=== PATIENT | female | born 1970 | race Caucasian/White ===

== ENCOUNTER 2023-03-15 13:14 | Inpatient (IN) | payer BC ==
[~2023-03-15] VITALS: Ht 172.7 cm; Wt 130.6 kg
[2023-03-15 13:15] VITALS: BP_SYST 196
[2023-03-15 14:05] LABS: MEAN CORPUSCULAR HEMOGLOBIN 15 pg (27-31); MEAN CORPUSCULAR HGB CONC 27 % (32-36); MEAN CORPUSCULAR VOLUME 54 fL (79.0-98.0); PLATELET COUNT (AUTO) 371 K/uL (130-430); RED BLOOD CELL COUNT(AUTO) 3.58 MIL/uL (4.2-6.2); RED CELL DISTRIBUTION WIDTH 22.1 % (9.0-15.0); WHITE BLOOD COUNT (AUTO) 7.8 K/uL (4.8-10.8)
[2023-03-15 14:17] LABS: HEMOGLOBIN 5.3 g/dL (12.0-16.0)
[2023-03-15 14:18] LABS: HEMATOCRIT 19.5 % (36-48)
[2023-03-15 14:20] LABS: CALCIUM 8.7 mg/dL (8.4-11.0); CREATININE 1.23 mg/dL (0.55-1.30)
[2023-03-15 14:24] LABS: ALBUMIN 3.7 g/dL (3.4-4.8); TOTAL BILIRUBIN 0.4 mg/dL (0.0-1.0)
[2023-03-15] MEDS ORDERED: NACL 0.9% 1,000 ML IV ONE (14:45)
[2023-03-15 14:46] LABS: BASOPHILS % (MANUAL) 0 % (0-2); EOSINOPHILS % (MANUAL) 1 % (0-7); LYMPHOCYTES % (MANUAL) 10 % (20-46); MONOCYTES % (MANUAL) 5 % (0-11)
[2023-03-15 15:42] LABS: PROTHROMBIN TIME 10.2 SECS (9.5-12.5)
[2023-03-15] MEDS ORDERED: BUSP15TA3 PO (17:32)
[2023-03-15] MEDS ORDERED: LORA-259 PO (17:32)
[2023-03-15] MEDS ORDERED: LEVO125T8 PO (17:32)
[2023-03-15] MEDS ORDERED: DOXE10CA2 PO (17:32)
[2023-03-15] MEDS ORDERED: PARO40TA80 PO (17:32)
[2023-03-15 18:14] VITALS: BP_SYST 167
[2023-03-15 18:20] VITALS: BP_SYST 167
[2023-03-15 20:00] VITALS: BP_SYST 151
[2023-03-15 20:36] LABS: TOTAL IRON BIND. CAPACITY 565 ug/dL (250-450)
[2023-03-15] MEDS: busPIRone HCL 5 MG TABLET PO SCH (22:47)
[2023-03-16] MEDS: LORazepam 1 MG TABLET PO PRN ×2 (00:25→23:03)
[2023-03-16 00:50] VITALS: BP_SYST 159
[2023-03-16] MEDS: LEVOTHYROXINE SODIUM 0.1 MG TABLET PO SCH (06:46)
[2023-03-16 08:43] VITALS: BP_SYST 107
[2023-03-16 09:09] LABS: CALCIUM 8.4 mg/dL (8.4-11.0); CREATININE 1.1 mg/dL (0.55-1.30)
[2023-03-16] MEDS: PANTOPRAZOLE SODIUM 40 MG/VIAL (PROTONIX) IVP SCH (09:22)
[2023-03-16] MEDS: DOXEPIN HCL (SINEquan) 10 MG CAPSULE PO SCH (09:23)
[2023-03-16] MEDS: PARoxetine HCL 20 MG TABLET PO SCH (09:23)
[2023-03-16] MEDS: busPIRone HCL 5 MG TABLET PO SCH ×2 (09:45→21:26)
[2023-03-16 09:49] LABS: BASOPHILS # (AUTO) 0.1 K/uL (0.0-0.2); EOSINOPHILS # (AUTO) 0.2 K/uL (0.0-0.4); EOSINOPHILS % (AUTO) 2.2 % (0.0-4.0); HEMATOCRIT 24.1 % (36-48); LYMPHOCYTES # (AUTO) 1.5 K/uL (1.0-5.5); LYMPHOCYTES % (AUTO) 20.2 % (20.5-51.5); MEAN CORPUSCULAR HEMOGLOBIN 17 pg (27-31); MEAN CORPUSCULAR HGB CONC 28 % (32-36); MEAN CORPUSCULAR VOLUME 61 fL (79.0-98.0); MONOCYTES # (AUTO) 0.5 K/uL (0.0-1.0); MONOCYTES % (AUTO) 6.3 % (1.7-9.3); NEUTROPHILS # (AUTO) 5.2 K/uL (1.8-7.7); NEUTROPHILS % (AUTO) 70.3 % (40.0-70.0); PLATELET COUNT (AUTO) 303 K/uL (130-430); RED BLOOD CELL COUNT(AUTO) 3.98 MIL/uL (4.2-6.2); RED CELL DISTRIBUTION WIDTH 27.4 % (9.0-15.0); WHITE BLOOD COUNT (AUTO) 7.4 K/uL (4.8-10.8)
[2023-03-16 10:00] LABS: HEMOGLOBIN 6.7 g/dL (12.0-16.0)
[2023-03-16 11:33] VITALS: BP_SYST 147
[2023-03-16] MEDS: SOD FERRIC GLUC COMPLEX/SUC 125 MG in NS 100 ML IV SCH (13:15)
[2023-03-16 18:05] VITALS: BP_SYST 135
[2023-03-16 19:11] LABS: BASOPHILS % (AUTO) 0.6 % (0.0-2.0); EOSINOPHILS # (AUTO) 0.2 K/uL (0.0-0.4); EOSINOPHILS % (AUTO) 3.2 % (0.0-4.0); HEMATOCRIT 23.7 % (36-48); LYMPHOCYTES % (AUTO) 15.9 % (20.5-51.5); MEAN CORPUSCULAR HEMOGLOBIN 17 pg (27-31); MEAN CORPUSCULAR HGB CONC 29 % (32-36); MEAN CORPUSCULAR VOLUME 60 fL (79.0-98.0); MONOCYTES # (AUTO) 0.4 K/uL (0.0-1.0); MONOCYTES % (AUTO) 7.1 % (1.7-9.3); NEUTROPHILS # (AUTO) 4.4 K/uL (1.8-7.7); NEUTROPHILS % (AUTO) 73.2 % (40.0-70.0); PLATELET COUNT (AUTO) 295 K/uL (130-430); RED BLOOD CELL COUNT(AUTO) 3.95 MIL/uL (4.2-6.2); RED CELL DISTRIBUTION WIDTH 26.7 % (9.0-15.0)
[2023-03-16 19:32] LABS: HEMOGLOBIN 6.9 g/dL (12.0-16.0)
[2023-03-16 20:00] VITALS: BP_SYST 136
[2023-03-17] VITALS: BP_SYST 140
[2023-03-17] MEDS: LEVOTHYROXINE SODIUM 0.1 MG TABLET PO SCH (06:37)
[2023-03-17 07:21] LABS: BASOPHILS # (AUTO) 0.1 K/uL (0.0-0.2); BASOPHILS % (AUTO) 1.6 % (0.0-2.0); EOSINOPHILS # (AUTO) 0.3 K/uL (0.0-0.4); EOSINOPHILS % (AUTO) 4.2 % (0.0-4.0); HEMATOCRIT 25.5 % (36-48); HEMOGLOBIN 7.4 g/dL (12.0-16.0); LYMPHOCYTES # (AUTO) 1.8 K/uL (1.0-5.5); LYMPHOCYTES % (AUTO) 26.8 % (20.5-51.5); MEAN CORPUSCULAR HEMOGLOBIN 18 pg (27-31); MEAN CORPUSCULAR HGB CONC 29 % (32-36); MONOCYTES # (AUTO) 0.5 K/uL (0.0-1.0); MONOCYTES % (AUTO) 7.9 % (1.7-9.3); NEUTROPHILS % (AUTO) 59.5 % (40.0-70.0); PLATELET COUNT (AUTO) 274 K/uL (130-430); RED BLOOD CELL COUNT(AUTO) 4.12 MIL/uL (4.2-6.2); WHITE BLOOD COUNT (AUTO) 6.7 K/uL (4.8-10.8)
[2023-03-17 07:37] LABS: CALCIUM 8.9 mg/dL (8.4-11.0); CREATININE 0.89 mg/dL (0.55-1.30)
[2023-03-17 08:00] VITALS: BP_SYST 151
[2023-03-17] MEDS: PANTOPRAZOLE SODIUM 40 MG/VIAL (PROTONIX) IVP SCH (08:14)
[2023-03-17] MEDS: DOXEPIN HCL (SINEquan) 10 MG CAPSULE PO SCH (08:51)
[2023-03-17] MEDS: PARoxetine HCL 20 MG TABLET PO SCH (08:51)
[2023-03-17 09:13] LABS: MEAN CORPUSCULAR VOLUME 62 fL (79.0-98.0)
[2023-03-17] MEDS ORDERED: SOD62.5V IV (11:03)
[2023-03-17] MEDS ORDERED: PRO40 PO (11:04)
[2023-03-17 12:00] VITALS: BP_SYST 150
[2023-03-17] MEDS: SOD FERRIC GLUC COMPLEX/SUC 125 MG in NS 100 ML IV SCH (13:52)
[2023-03-17 16:00] VITALS: BP_SYST 151
[2023-03-17 20:00] VITALS: BP_SYST 160
[2023-03-17] MEDS: busPIRone HCL 5 MG TABLET PO SCH (20:07)
[2023-03-17] MEDS ORDERED: busPIRone HCL 5 MG TABLET PO SCH (21:00)
[2023-03-18] MEDS: LORazepam 1 MG TABLET PO PRN ×2 (00:36→08:57)
[2023-03-18 00:54] VITALS: BP_SYST 162
[2023-03-18] MEDS: LEVOTHYROXINE SODIUM 0.1 MG TABLET PO SCH (06:35)
[2023-03-18 08:10] VITALS: BP_SYST 177
[2023-03-18 08:18] LABS: CALCIUM 8.8 mg/dL (8.4-11.0); CREATININE 0.87 mg/dL (0.55-1.30)
[2023-03-18 08:22] LABS: BASOPHILS # (AUTO) 0.1 K/uL (0.0-0.2); EOSINOPHILS # (AUTO) 0.4 K/uL (0.0-0.4); EOSINOPHILS % (AUTO) 5.2 % (0.0-4.0); HEMATOCRIT 26.6 % (36-48); HEMOGLOBIN 7.6 g/dL (12.0-16.0); LYMPHOCYTES # (AUTO) 1.8 K/uL (1.0-5.5); LYMPHOCYTES % (AUTO) 26.4 % (20.5-51.5); MEAN CORPUSCULAR HEMOGLOBIN 18 pg (27-31); MEAN CORPUSCULAR HGB CONC 28 % (32-36); MEAN CORPUSCULAR VOLUME 63 fL (79.0-98.0); MONOCYTES # (AUTO) 0.5 K/uL (0.0-1.0); MONOCYTES % (AUTO) 7.1 % (1.7-9.3); NEUTROPHILS # (AUTO) 4.1 K/uL (1.8-7.7); NEUTROPHILS % (AUTO) 60.3 % (40.0-70.0); PLATELET COUNT (AUTO) 260 K/uL (130-430); RED BLOOD CELL COUNT(AUTO) 4.22 MIL/uL (4.2-6.2); RED CELL DISTRIBUTION WIDTH 28.1 % (9.0-15.0)
[2023-03-18 08:27] LABS: WHITE BLOOD COUNT (AUTO) 6.9 K/uL (4.8-10.8)
[2023-03-18] MEDS: DOXEPIN HCL (SINEquan) 10 MG CAPSULE PO SCH (08:56)
[2023-03-18] MEDS: PARoxetine HCL 20 MG TABLET PO SCH (08:57)
[2023-03-18] MEDS: busPIRone HCL 5 MG TABLET PO SCH (08:57)
[2023-03-18] MEDS: PANTOPRAZOLE SODIUM 40 MG/VIAL (PROTONIX) IVP SCH (09:05)
[2023-03-18 11:37] VITALS: BP_SYST 156
[2023-03-18] MEDS: SOD FERRIC GLUC COMPLEX/SUC 125 MG in NS 100 ML IV SCH (12:14)
[2023-03-18] MEDS ORDERED: LOSARTAN POTASSIUM 25 MG TABLET PO ONE (12:15)
[2023-03-18] MEDS ORDERED: METO25TA3 PO (13:39)
[2023-03-18] MEDS ORDERED: IRON-6 PO (13:39)
[2023-03-18 15:11] VITALS: BP_SYST 146
[2023-03-18] MEDS ORDERED: LOSARTAN POTASSIUM 25 MG TABLET PO SCH (21:00)
== END 2023-03-18 20:57 | disposition home or self-care (01) | DRG 812 ==
LOC: SED 13:14 → SMU 16:06 → STU 17:45 → SMU 18:00 → STU 19:51 → SMU 03-17 21:13
PROVIDERS: ADMIT Specialist; ATTEND Specialist
PROC: 30233N1 Transfusion of Nonautologous Red Blood Cells into Peripheral Vein, Percutaneous Approach (ICD-10-PCS; principal; 2023-03-16)
DX: D50.9 Iron deficiency anemia, unspecified (principal); F32.A Depression, unspecified; K44.9 Diaphragmatic hernia without obstruction or gangrene; E03.9 Hypothyroidism, unspecified; Z20.822 Contact with and (suspected) exposure to COVID-19
CPT/HCPCS: 36415; 71045; 76376; 80048; 80053; 82150; 82272; 82607; 82746; 83010; 83540; 83550; 83605; 83690; 84443; 85007; 85025; 85027; 85044; 85610-TC; 85730-TC; 86880-TC; 86886; 86900; 86901; 86920; 96360; 97116-GP; 97163-GP; 97530-GP; 99285; C9113; G0378; J2916; P9021

== ENCOUNTER 2024-06-13 19:29 | Observation (INO) | payer OTHER, MEDICAID ==
[~2024-06-13] VITALS: Ht 172.7 cm; Wt 146.5 kg
[~2024-06-13 19:29] MED LIST: BUSP15TA3 PO; DOXE10CA2 PO; IRON-6 PO; LEVO125T8 PO; LORA-259 PO; METO25TA3 PO; PARO40TA80 PO; PRO40 PO; SOD62.5V IV
[2024-06-13 19:33] VITALS: BP_SYST 181; PULSE 141; RESP 20; TEMP 98.4; O2SAT 94
[2024-06-13] MEDS: NACL 0.9% 1,000 ML IV ONE ×2 (20:21→22:00)
[2024-06-13] MEDS: METOPROLOL TARTRATE 25 MG TABLET ONE (20:45)
[2024-06-13 20:46] LABS: BASOPHILS # (AUTO) 0.1 K/uL (0.0-0.2); BASOPHILS % (AUTO) 0.8 % (0.0-2.0); EOSINOPHILS % (AUTO) 0.2 % (0.0-4.0); HEMATOCRIT 45.2 % (36-48); HEMOGLOBIN 15.7 g/dL (12.0-16.0); LYMPHOCYTES # (AUTO) 1.1 K/uL (1.0-5.5); LYMPHOCYTES % (AUTO) 10.1 % (20.5-51.5); MEAN CORPUSCULAR HEMOGLOBIN 31 pg (27-31); MEAN CORPUSCULAR HGB CONC 35 % (32-36); MEAN CORPUSCULAR VOLUME 89 fL (79.0-98.0); MONOCYTES # (AUTO) 0.5 K/uL (0.0-1.0); MONOCYTES % (AUTO) 4.7 % (1.7-9.3); NEUTROPHILS # (AUTO) 8.9 K/uL (1.8-7.7); NEUTROPHILS % (AUTO) 84.2 % (40.0-70.0); PLATELET COUNT (AUTO) 250 K/uL (130-430); RED BLOOD CELL COUNT(AUTO) 5.09 MIL/uL (4.2-6.2); RED CELL DISTRIBUTION WIDTH 13.8 % (9.0-15.0); WHITE BLOOD COUNT (AUTO) 10.5 K/uL (4.8-10.8)
[2024-06-13] MEDS: METOPROLOL SUCCINATE 25 MG TAB.SR.24H (TOPROL XL) PO ONE ×2 (20:57)
[2024-06-13 21:30] LABS: PROTHROMBIN TIME 10.3 SECS (9.5-12.5)
[2024-06-13 21:32] LABS: ALANINE AMINOTRANSFERASE 37 U/L (12-78); ALBUMIN 3.4 g/dL (3.4-4.8); ANION GAP 10 (5-15); ASPARTATE AMINOTRANSFERASE 19 U/L (10-37); CALCIUM 9.5 mg/dL (8.4-11.0); CARBON DIOXIDE 27 mmol/L (23-29); CHLORIDE 104 mmol/L (98-107); CREATININE 1.34 mg/dL (0.55-1.30); GFR AFRICAN AMERICAN 54 mL/min (>90); GLUCOSE 108 mg/dL (74-106); POTASSIUM 4.1 mmol/L (3.5-5.1); SODIUM SERUM 141 mmol/L (136-145); TOTAL BILIRUBIN 0.4 mg/dL (0.0-1.0); TOTAL PROTEIN, SERUM 7.5 g/dL (6.4-8.3); UREA NITROGEN, BLOOD 16 mg/dL (8-21)
[2024-06-13 21:33] LABS: GFR NON AFRICAN-AMERICAN 44 mL/min (>90)
[2024-06-13 21:41] LABS: INFLUENZA TYPE A Negative (NEGATIVE); INFLUENZA TYPE B NEGATIVE (NEGATIVE)
[2024-06-13 21:41] LABS: BILIRUBIN,DIRECT 0.1 mg/dL (0.0-0.3); CREATINE KINASE, TOTAL 69 U/L (26-192); THYROID STIMULATING HORMONE 0.07 uIu/mL (0.36-3.74)
[2024-06-13 22:08] LABS: BILIRUBIN,URINE NEGATIVE (NEGATIVE); BLOOD, URINE 1+ (NEGATIVE); CLARITY/URINE CLEAR (CLEAR); COLOR,URINE YELLOW (YELLOW); GLUCOSE,URINE NEGATIVE (NEGATIVE); KETONES,URINE TRACE (NEGATIVE); LEUKOCYTE ESTERASE ,URINE TRACE (NEGATIVE); NITRITE, URINE NEGATIVE (NEGATIVE); PROTEIN URINE TRACE (NEGATIVE); UROBILINOGEN,URINE 0.2 (0.2-1.0)
[2024-06-13 22:16] LABS: BACTERIA,URINE FEW /HPF (None Seen); HYALINE CASTS, URINE 0-10 /LPF (None Seen); MUCUS,URINE None Seen /LPF (None Seen); RBC,URINE 0-3 /HPF (0-3)
[2024-06-13] MEDS: cefTRIAXone 1 GM in D5W 50 ML IV ONE (22:33)
[2024-06-13] MEDS ORDERED: AZITHROMYCIN 500 MG/VIAL (ZITHROMAX) IV ONE (22:33)
[2024-06-13] MEDS ORDERED: cefTRIAXone 1 GM VIAL ONE (22:33)
[2024-06-13] MEDS: AZITHROMYCIN 500 MG in NS 250 ML IV ONE (22:42)
[2024-06-13] MEDS: 0.45% NACL 1,000 ML IV SCH (22:47)
[2024-06-13] MEDS ORDERED: METOPROLOL TARTRATE 5 MG/5 ML VIAL IVP ONE (23:30)
[2024-06-13] MEDS: ACETAMINOPHEN 500 MG TABLET PO ONE (23:39)
[2024-06-14] MEDS ORDERED: cloNIDine HCL 0.1 MG TABLET PO PRN (00:15)
[2024-06-14] MEDS: cloNIDine HCL 0.1 MG TABLET PO PRN (00:39)
[2024-06-14] MEDS ORDERED: FERR325T30 PO (01:11)
[2024-06-14] MEDS ORDERED: LEVO200T8 PO ×2 (06:28→09:42)
[2024-06-14 08:42] VITALS: BP_SYST 153; PULSE 111; RESP 20; TEMP 101
[2024-06-14 08:45] VITALS: BP_SYST 153; PULSE 111; RESP 20; TEMP 101; O2SAT 97
[2024-06-14] MEDS ORDERED: LORazepam 1 MG TABLET PO PRN (09:00)
[2024-06-14] MEDS ORDERED: ACETAMINOPHEN 325 MG TABLET PO PRN ×2 (10:00→11:15)
[2024-06-14] MEDS: ACETAMINOPHEN 325 MG TABLET PO PRN (11:26)
[2024-06-14] MEDS: LEVOTHYROXINE SODIUM 0.1 MG TABLET PO ONE (12:10)
[2024-06-14] MEDS: busPIRone HCL 5 MG TABLET PO ONE (12:13)
[2024-06-14] MEDS: DOXEPIN HCL (SINEquan) 10 MG CAPSULE PO ONE (12:13)
[2024-06-14] MEDS: PARoxetine HCL 20 MG TABLET PO ONE (12:14)
[2024-06-14] MEDS: METOPROLOL SUCCINATE 25 MG TAB.SR.24H (TOPROL XL) PO ONE (12:19)
[2024-06-14] MEDS: AMPICILLIN SODIUM/SULBACTAM NA 1.5 GM in NS 50 ML IV SCH (13:25)
[2024-06-14 16:00] VITALS: BP_SYST 152; PULSE 95; RESP 20; TEMP 97; O2SAT 95
[2024-06-14 20:00] VITALS: BP_SYST 148; PULSE 97; RESP 18; TEMP 98.1; O2SAT 94
[2024-06-14] MEDS: cefTRIAXone 1 GM IVPB PREMIX 50 ML IV SCH (21:35)
[2024-06-14] MEDS: busPIRone HCL 5 MG TABLET PO SCH (21:35)
[2024-06-15 00:20] VITALS: BP_SYST 143; PULSE 81; RESP 18; TEMP 98; O2SAT 96
[2024-06-15 07:46] VITALS: O2SAT 97
[2024-06-15 08:00] VITALS: BP_SYST 153; PULSE 99; RESP 17; TEMP 97.8; O2SAT 96
[2024-06-15] MEDS: METOPROLOL SUCCINATE 25 MG TAB.SR.24H (TOPROL XL) PO SCH (08:20)
[2024-06-15] MEDS: DOXEPIN HCL (SINEquan) 10 MG CAPSULE PO SCH (08:20)
[2024-06-15] MEDS: PARoxetine HCL 20 MG TABLET PO SCH (08:21)
[2024-06-15] MEDS: LEVOTHYROXINE SODIUM 0.1 MG TABLET PO SCH (08:21)
[2024-06-15 08:25] LABS: BASOPHILS % (AUTO) 0.4 % (0.0-2.0); EOSINOPHILS # (AUTO) 0.2 K/uL (0.0-0.4); HEMATOCRIT 42.5 % (36-48); HEMOGLOBIN 14.2 g/dL (12.0-16.0); LYMPHOCYTES # (AUTO) 1.4 K/uL (1.0-5.5); LYMPHOCYTES % (AUTO) 20.2 % (20.5-51.5); MEAN CORPUSCULAR HEMOGLOBIN 30 pg (27-31); MEAN CORPUSCULAR HGB CONC 33 % (32-36); MEAN CORPUSCULAR VOLUME 90 fL (79.0-98.0); MONOCYTES # (AUTO) 0.6 K/uL (0.0-1.0); NEUTROPHILS # (AUTO) 4.8 K/uL (1.8-7.7); NEUTROPHILS % (AUTO) 68.4 % (40.0-70.0); PLATELET COUNT (AUTO) 215 K/uL (130-430); RED CELL DISTRIBUTION WIDTH 13.8 % (9.0-15.0); WHITE BLOOD COUNT (AUTO) 7.1 K/uL (4.8-10.8)
[2024-06-15] MEDS ORDERED: AMOX-423 PO (09:53)
[2024-06-15] MEDS: AMOXICILLIN/POTASSIUM CLAV 875 MG TABLET PO SCH (10:04)
[2024-06-15 12:28] VITALS: BP_SYST 146; PULSE 80; RESP 17; TEMP 97.5; O2SAT 95
[2024-06-15 12:35] VITALS: BP_SYST 146; PULSE 80; RESP 16; TEMP 97.1; O2SAT 95
== END 2024-06-15 14:20 | disposition home or self-care (01) ==
LOC: SED 19:29 → SMU 22:37 → STU 06-14 07:41
PROVIDERS: ADMIT Specialist; ATTEND Specialist
DX: E05.90 Thyrotoxicosis, unspecified without thyrotoxic crisis or storm (principal); Z20.822 Contact with and (suspected) exposure to COVID-19; H60.92 Unspecified otitis externa, left ear; K52.1 Toxic gastroenteritis and colitis; R65.10 Systemic inflammatory response syndrome (SIRS) of non-infectious origin without acute organ dysfunction; I10 Essential (primary) hypertension; E03.9 Hypothyroidism, unspecified; N39.0 Urinary tract infection, site not specified; N17.9 Acute kidney failure, unspecified; E86.0 Dehydration; E66.01 Morbid (severe) obesity due to excess calories; F41.8 Other specified anxiety disorders; T36.95XA Adverse effect of unspecified systemic antibiotic, initial encounter; Y92.89 Other specified places as the place of occurrence of the external cause; Z79.899 Other long term (current) drug therapy
CPT/HCPCS: 96361; 96365; 80076; 80048; 81000; 81001; 82550; 84443; 85025 ×2; 85610; 85730; 87040; 87086; 84484; 36415 ×2; 93005; 71045; 99285; 96368; 83605; 87804 ×2; 87426; 96366 ×2; 96367; J0456; J0696 ×2; J0295; G0378 ×2; 81015